=== PATIENT | male | born 1965 | race Caucasian/White ===

== ENCOUNTER 2018-04-22 15:42 | Emergency (ER) | payer MEDICAID ==
[~2018-04-22] VITALS: Ht 190.5 cm; Wt 111.1 kg
[2018-04-22 16:00] VITALS: BP 155/85
[2018-04-22] MEDS ORDERED: CYCLOBENZAPRINE10 MG ORAL (16:36)
[2018-04-22] MEDS ORDERED: NORCO 5-325 TA1 EACH ORAL (16:36)
[2018-04-22 16:45] VITALS: BP 143/76
[2018-04-22] MEDS ORDERED: Norco 5mg/325mg tab ORAL ONE (16:45)
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
== END 2018-04-22 18:00 | disposition home or self-care (01) ==
LOC: EMR 16:32
DX: S39.012A Strain of muscle, fascia and tendon of lower back, initial encounter (principal); V43.52XA Car driver injured in collision with other type car in traffic accident, initial encounter; Y92.410 Unspecified street and highway as the place of occurrence of the external cause
CPT/HCPCS: 99282

== ENCOUNTER 2018-11-02 20:38 | Inpatient (IN) | payer MEDICAID ==
[~2018-11-02] VITALS: Ht 190.5 cm; Wt 106.1 kg
[~2018-11-02 20:38] MED LIST: CYCLOBENZAPRINE10 MG ORAL; NORCO 5-325 TA1 EACH ORAL
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
--- NOTE | 2018-11-02 21:05 | NUR ---
ED Nurse Note: iv access established. blood collected; sent down to lab.
[2018-11-02 21:06] VITALS: BP 121/74
[2018-11-02] MEDS ORDERED: AMIODARONE HCL100 MG ORAL (21:12)
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
--- NOTE | 2018-11-02 21:21 | NUR ---
ED Nurse Note: imaging at bedside.
[2018-11-02 21:27] LABS: BASOPHILS % (AUTO) 0.4 % (0.0-2.0); EOSINOPHILS % (AUTO) 0.6 % (0.0-3.0); HEMATOCRIT 44.8 % (42.0-52.0); HEMOGLOBIN 14.1 G/DL (14.2-18.0); LYMPHOCYTES % (AUTO) 28.7 % (20.0-45.0); MEAN CORPUSCULAR VOLUME 84 FL (80-99); MONOCYTES % (AUTO) 7.2 % (1.0-10.0); NEUTROPHILS % (AUTO) 63.2 % (45.0-75.0); PLATELET COUNT 240 K/UL (150-450); RED BLOOD COUNT 5.34 M/UL (4.70-6.10); RED CELL DISTRIBUTION WIDTH 14.2 % (11.6-14.8)
[2018-11-02 21:39] LABS: ANION GAP 10 mmol/L (5-15); BLOOD UREA NITROGEN 18 mg/dL (7-18); CALCIUM 8.9 MG/DL (8.5-10.1); CARBON DIOXIDE 25 MMOL/L (21-32); CHLORIDE 106 MMOL/L (98-107); CREATININE 1.2 MG/DL (0.55-1.30); POTASSIUM 4.4 MMOL/L (3.5-5.1); SODIUM 141 MMOL/L (136-145)
[2018-11-02 21:52] LABS: ALANINE AMINOTRANSFERASE 30 U/L (12-78); ALBUMIN 4.1 G/DL (3.4-5.0); ALKALINE PHOSPHATASE 115 U/L (46-116); ASPARTATE AMINO TRANSFERASE 31 U/L (15-37); BILIRUBIN,TOTAL 0.4 MG/DL (0.2-1.0); CKMB 0.7 NG/ML (0.0-3.6); CREATINE KINASE 66 U/L (26-308)
[2018-11-02] MEDS ORDERED: Ketorolac 30mg Inj IV ONE (22:00)
--- NOTE | 2018-11-02 22:19 | NUR ---
ED Nurse Note: report given to dario guardado. per receiving rn, room not ready; will call back when room is ready.
--- NOTE | 2018-11-02 22:30 | NUR ---
TRANSFER TO FLOOR: Patient transferred to tele 220-1 as ordered, per hightower md. Report given to dario guardado. belongings list completed with receiving rn.
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
[2018-11-02] MEDS: DiphenhydrAMINE 50mg/ml Inj IVP PRN (23:29)
[2018-11-02] MEDS: Enoxaparin 40mg Inj SUBQ SCH (23:31)
[2018-11-03] VITALS: BP 120/78
[2018-11-03 04:00] VITALS: BP 104/67
[2018-11-03 05:58] LABS: APPEARANCE,URINE CLEAR; BILIRUBIN, URINE NEGATIVE (NEGATIVE); COLOR,URINE PALE YELLOW; GLUCOSE, URINE (UA) 1+ (NEGATIVE); KETONES,URINE NEGATIVE (NEGATIVE); LEUKOCYTE ESTERASE ,URINE NEGATIVE (NEGATIVE); NITRITE,URINE NEGATIVE (NEGATIVE); PH,URINE 5 (4.5-8.0); PROTEIN,URINE NEGATIVE (NEGATIVE); UROBILINOGEN,URINE NORMAL MG/DL (0.0-1.0)
[2018-11-03 06:22] LABS: BASOPHILS % (AUTO) 0.9 % (0.0-2.0); EOSINOPHILS % (AUTO) 1.1 % (0.0-3.0); HEMATOCRIT 37.6 % (42.0-52.0); HEMOGLOBIN 11.8 G/DL (14.2-18.0); LYMPHOCYTES % (AUTO) 34.3 % (20.0-45.0); MEAN CORPUSCULAR VOLUME 86 FL (80-99); MONOCYTES % (AUTO) 10.6 % (1.0-10.0); NEUTROPHILS % (AUTO) 53.2 % (45.0-75.0); PLATELET COUNT 207 K/UL (150-450); RED BLOOD COUNT 4.39 M/UL (4.70-6.10); RED CELL DISTRIBUTION WIDTH 14.7 % (11.6-14.8); WHITE BLOOD COUNT 5.2 K/UL (4.8-10.8)
[2018-11-03 06:40] LABS: ANION GAP 10 mmol/L (5-15); BLOOD UREA NITROGEN 13 mg/dL (7-18); CALCIUM 8.2 MG/DL (8.5-10.1); CARBON DIOXIDE 25 MMOL/L (21-32); CHLORIDE 105 MMOL/L (98-107); POTASSIUM 3.5 MMOL/L (3.5-5.1); SODIUM 140 MMOL/L (136-145)
[2018-11-03] MEDS ORDERED: traMADol 50mg tab ORAL PRN (07:30)
--- NOTE | 2018-11-03 07:56 | NUR ---
HAND-OFF: Report given to YIN Hawk. Pt stable.
[2018-11-03 08:00] VITALS: BP_SYST 102; BP_SYST 151; BP_DIAS 100; BP_DIAS 61
[2018-11-03] MEDS ORDERED: Amiodarone 200mg tab ORAL SCH (09:00)
[2018-11-03] MEDS: DiphenhydrAMINE 50mg/ml Inj IVP PRN ×2 (09:10→17:36)
[2018-11-03] MEDS: Aspirin Baby 81mg ORAL SCH (09:13)
--- NOTE | 2018-11-03 09:33 | Diagnostic Imaging Report ---
Indication: Chest pain Technique: One view of the chest Comparison: none Findings: There is a lucency under the right hemidiaphragm. Lungs and pleural spaces are clear. There is a left chest AICD. Impression: Lucency under the right hemidiaphragm. Suspect that this represents the colon under the diaphragm but the possibility of the represents free intraperitoneal gas should also be considered. Recommend abdominal series with decubitus view for further evaluation. This was discussed with Dr. Bowen at the time of interpretation No acute process otherwise
--- NOTE | 2018-11-03 10:00 | History and Physical Report ---
DATE OF ADMISSION: 11/02/2018 REASON FOR ADMISSION: Tachycardia. HISTORY OF PRESENT ILLNESS: The patient is a 53-year-old gentleman with known history of ventricular tachycardia, who recently had been placed on AICD. The patient had had several runs of ventricular tachycardia in the past. After having the ICD placed, it fired many times. He was in [place] and then transferred to [facility]. At [facility], his AICD was turned off 10/07/2018. The patient says again that he felt very flushed and almost passed out again, much to similar way as his last runs of ventricular tachycardia. As such, he was admitted for further evaluation and care. PAST MEDICAL HISTORY: 1. Ventricular tachycardia. 2. Chronic pain syndrome. PAST SURGICAL HISTORY: AICD. ALLERGIES: No known drug allergies SOCIAL HISTORY: No tobacco, alcohol, or illicit drug use. FAMILY HISTORY: Noncontributory. REVIEW OF SYSTEMS: NEUROLOGIC: The patient had presyncopal episode, lightheadedness, and dizziness. CARDIOVASCULAR: No current chest pain, palpitations, or angina. PULMONARY: No difficulty breathing, productive cough, or sputum. GASTROINTESTINAL/GENITOURINARY: No change in urinary or bowel habits. No nausea, vomiting, or diarrhea. ENDOCRINOLOGY: No night sweats, fevers, or chills. MUSCULOSKELETAL: The patient is feeling weak, tired, and fatigued. PHYSICAL EXAMINATION: VITAL SIGNS: Blood pressure 104/67, respiratory rate 18, temperature 98, and pulse 55. 98% oxygen saturation on room air. GENERAL: The patient is awake and alert, not in distress. HEENT: Extraocular muscles intact. No lymphadenopathy noted. CARDIOVASCULAR: S1, S2. Bradycardic. PULMONARY: Clear to auscultation bilaterally. No rales, rhonchi, or wheezes. ABDOMEN: Nondistended and nontender. EXTREMITIES: No edema. LABORATORY DATA: Labs dated 11/03/2018 - sodium 140, potassium 3.5, and creatinine 1. Troponin 0. White cell count 5.2, hemoglobin 11.8, and platelet count 207,000. ASSESSMENT AND PLAN: 1. Presyncopal episode, again could be secondary to underlying arrhythmia. The patient does have a history of ventricular tachycardia with AICD. At this time electrolytes are stable. Cardiology, Dr. Rajput, founder and chief executive officer has been consulted for further evaluation, management, and care. 2. Bradycardia. Stable. Continue to monitor. Cardiology to evaluate. 3. DVT prophylaxis with Lovenox. 4. GI prophylaxis with Protonix. Héctor Bowen MD DR: ROSANA JOB#: [id number] CC:
--- NOTE | 2018-11-03 11:00 | Cardiology Report ---
APPROVED REPORT EKG Measurement Heart [id number] Normal sinus rhythm Normal ECG
[2018-11-03 12:00] VITALS: BP 110/67
--- NOTE | 2018-11-03 15:22 | NUR ---
Staff RadiographerBack Hoe Machine Operator 53 Y/O male from HOME CC: WALKED IN WITH SYNCOPAL EPISODE, L-SIDE PAIN, PT REPORTS HE HAS IMPLANTED DEFIB, EPISODE OF HEART PALP AND PASSED OUT. DEFIB PUT IN 09/02/18. SI: SYNCOPE VS: BP: 121/74 HR: 88 RR 18 02 Sat 96% (RA) T: 98.6 NT: HGB 14.1 UR GLUCOSE 1+ TOTAL PROTEIN 8.3 CXR: NEGATIVE IS: NONE Admitted to TELEMETRY TELEMETRY status DCP: Pending HOSPITAL STAY
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
--- NOTE | 2018-11-03 17:34 | Cardiac Electrophysiology PN ---
Subjective Subjective [id number] Objective Last 24 Hour Vital Signs Date Time Temp Pulse Resp B/P (MAP) Pulse Ox O2 Delivery O2 Flow Rate FiO2 11/03/18 12:00 98.3 58 20 110/67 (81) 99 11/03/18 12:00 59 11/03/18 09:00 Room Air 11/03/18 08:00 97.7 77 18 102/61 (75) 98 11/03/18 08:00 68 11/03/18 04:00 98.0 55 18 104/67 (79) 98 11/03/18 04:00 59 11/03/18 00:01 Room Air 11/03/18 00:00 97.3 65 18 120/78 (92) 100 11/03/18 00:00 76 11/02/18 22:30 98.6 88 18 121/74 96 Room Air 11/02/18 22:25 98.6 11/02/18 21:06 98.6 88 18 121/74 96 Room Air 11/02/18 20:41 98.6 88 18 121/74 (90) 96 Room Air Intake and Output 11/02/18 11/03/18 19:00 07:00 Output Total 600 ml Balance -600 ml Output Urine Total 600 ml # Voids 1 Laboratory Tests Test 11/02/18 21:07 11/02/18 21:09 11/03/18 05:22 11/03/18 05:30 White Blood Count 7.0 K/UL (4.8-10.8) 5.2 K/UL (4.8-10.8) Red Blood Count 5.34 M/UL (4.70-6.10) 4.39 M/UL (4.70-6.10) L Hemoglobin 14.1 G/DL (14.2-18.0) L 11.8 G/DL (14.2-18.0) L Hematocrit 44.8 % (42.0-52.0) 37.6 % (42.0-52.0) L Mean Corpuscular Volume 84 FL (80-99) 86 FL (80-99) Mean Corpuscular Hemoglobin 26.4 PG (27.0-31.0) L 26.8 PG (27.0-31.0) L Mean Corpuscular Hemoglobin Concent 31.5 G/DL (32.0-36.0) L 31.3 G/DL (32.0-36.0) L Red Cell Distribution Width 14.2 % (11.6-14.8) 14.7 % (11.6-14.8) Platelet Count 240 K/UL (150-450) 207 K/UL (150-450) Mean Platelet Volume 6.3 FL (6.5-10.1) L 6.3 FL (6.5-10.1) L Neutrophils (%) (Auto) 63.2 % (45.0-75.0) 53.2 % (45.0-75.0) Lymphocytes (%) (Auto) 28.7 % (20.0-45.0) 34.3 % (20.0-45.0) Monocytes (%) (Auto) 7.2 % (1.0-10.0) 10.6 % (1.0-10.0) H Eosinophils (%) (Auto) 0.6 % (0.0-3.0) 1.1 % (0.0-3.0) Basophils (%) (Auto) 0.4 % (0.0-2.0) 0.9 % (0.0-2.0) Prothrombin Time 10.5 SEC (9.30-11.50) Prothromb Time International Ratio 1.0 (0.9-1.1) Activated Partial Thromboplast Time 29 SEC (23-33) Sodium Level 141 MMOL/L (136-145) 140 MMOL/L (136-145) Potassium Level 4.4 MMOL/L (3.5-5.1) 3.5 MMOL/L (3.5-5.1) Chloride Level 106 MMOL/L (98-107) 105 MMOL/L (98-107) Carbon Dioxide Level 25 MMOL/L (21-32) 25 MMOL/L (21-32) Anion Gap 10 mmol/L (5-15) 10 mmol/L (5-15) Blood Urea Nitrogen 18 mg/dL (7-18) 13 mg/dL (7-18) Creatinine 1.2 MG/DL (0.55-1.30) 1.0 MG/DL (0.55-1.30) Estimat Glomerular Filtration Rate > 60 mL/min (>60) > 60 mL/min (>60) Glucose Level 86 MG/DL (74-106) 68 MG/DL (74-106) L Calcium Level 8.9 MG/DL (8.5-10.1) 8.2 MG/DL (8.5-10.1) L Total Bilirubin 0.4 MG/DL (0.2-1.0) Aspartate Amino Transf (AST/SGOT) 31 U/L (15-37) Alanine Aminotransferase (ALT/SGPT) 30 U/L (12-78) Alkaline Phosphatase 115 U/L (46-116) Total Creatine Kinase 66 U/L (26-308) Creatine Kinase MB 0.7 NG/ML (0.0-3.6) Creatine Kinase MB Relative Index 1.0 Total Protein 8.3 G/DL (6.4-8.2) H Albumin 4.1 G/DL (3.4-5.0) Globulin 4.2 g/dL Albumin/Globulin Ratio 1.0 (1.0-2.7) Troponin I 0.000 ng/mL (0.000-0.056) Urine Color Pale yellow Urine Appearance Clear Urine pH 5 (4.5-8.0) Urine Specific [place] 1.010 (1.005-1.035) Urine Protein Negative (NEGATIVE) Urine Glucose (UA) 1+ (NEGATIVE) H Urine Ketones Negative (NEGATIVE) Urine Blood Negative (NEGATIVE) Urine Nitrite Negative (NEGATIVE) Urine Bilirubin Negative (NEGATIVE) Urine Urobilinogen Normal MG/DL (0.0-1.0) Urine Leukocyte Esterase Negative (NEGATIVE) Urine Opiates Screen Negative (NEGATIVE) Urine Barbiturates Screen Negative (NEGATIVE) Phencyclidine (PCP) Screen Negative (NEGATIVE) Urine Amphetamines Screen Negative (NEGATIVE) Urine Benzodiazepines Screen Negative (NEGATIVE) Urine Cocaine Screen Negative (NEGATIVE) Urine Marijuana (THC) Screen Negative (NEGATIVE) Surjit Rajput MD Nov 03, 2018 17:34
--- NOTE | 2018-11-03 19:30 | NUR ---
NURSE NOTES: Received report from YIN Hawk. Pt is awake and resting in bed. In no acute distress. IV line intact and patent. Bed in lowest position, call light within reach. Will continue plan of care.
[2018-11-03 19:50] VITALS: BP 114/67
[2018-11-03 20:00] VITALS: BP 118/67
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
--- NOTE | 2018-11-03 20:17 | Diagnostic Imaging Report ---
Indication: Abdominal pain Technique: Supine view of the abdomen Comparison: none Findings: There is a moderate amount of gas in nondilated large and small bowel. Surgical clips are seen in the left lower abdomen. No masses or unusual calcifications demonstrated. An AICD is seen in the included chest Impression: No acute process. Findings as noted This agrees with the preliminary interpretation provided overnight by [facility] teleradiology service.
[2018-11-04] VITALS: BP 118/81
[2018-11-04] MEDS: Enoxaparin 40mg Inj SUBQ SCH (00:12)
[2018-11-04] MEDS: DiphenhydrAMINE 50mg/ml Inj IVP PRN ×2 (01:40→10:23)
[2018-11-04 04:00] VITALS: BP 106/70
[2018-11-04 06:47] LABS: BASOPHILS % (AUTO) 0.5 % (0.0-2.0); EOSINOPHILS % (AUTO) 0.8 % (0.0-3.0); HEMATOCRIT 37.3 % (42.0-52.0); HEMOGLOBIN 11.7 G/DL (14.2-18.0); LYMPHOCYTES % (AUTO) 28.4 % (20.0-45.0); MEAN CORPUSCULAR VOLUME 86 FL (80-99); MONOCYTES % (AUTO) 10.9 % (1.0-10.0); NEUTROPHILS % (AUTO) 59.4 % (45.0-75.0); PLATELET COUNT 219 K/UL (150-450); RED BLOOD COUNT 4.36 M/UL (4.70-6.10); RED CELL DISTRIBUTION WIDTH 14.7 % (11.6-14.8); WHITE BLOOD COUNT 5.4 K/UL (4.8-10.8)
[2018-11-04 07:04] LABS: ANION GAP 8 mmol/L (5-15); BLOOD UREA NITROGEN 7 mg/dL (7-18); CALCIUM 8.4 MG/DL (8.5-10.1); CARBON DIOXIDE 25 MMOL/L (21-32); CHLORIDE 112 MMOL/L (98-107); POTASSIUM 3.7 MMOL/L (3.5-5.1); SODIUM 145 MMOL/L (136-145)
--- NOTE | 2018-11-04 07:11 | NUR ---
HAND-OFF: Report given to YIN Hawk.
[2018-11-04 08:00] VITALS: BP 126/76
--- NOTE | 2018-11-04 08:25 | Nephrology Progress Note ---
Assessment/Plan Assessment/Plan: A/P 1) CHF/VTach- AICD turned on. Amio bid - ECHO today - DC afterwards pending cardiology reccs 2) DVT propylaxis- lovenox 3) HTN- stable DC today after ECHO Subjective Date patient seen: Nov 04, 2018 Time patient seen: 08:22 ROS Limited/Unobtainable: No Allergies: Coded Allergies: No Known Allergies (Unverified , 04/22/18) Subjective Patient in no distress Objective Last 24 Hour Vital Signs Date Time Temp Pulse Resp B/P (MAP) Pulse Ox O2 Delivery O2 Flow Rate FiO2 11/04/18 04:00 67 11/04/18 04:00 97.7 67 18 106/70 (82) 98 11/04/18 00:00 63 11/04/18 00:00 97.9 63 20 118/81 (93) 97 11/03/18 21:15 80 118/67 11/03/18 21:00 Room Air 11/03/18 20:00 88 11/03/18 20:00 98.3 88 20 118/67 (84) 98 11/03/18 19:50 96.5 83 18 114/67 (83) 97 11/03/18 16:00 71 11/03/18 12:00 98.3 58 20 110/67 (81) 99 11/03/18 12:00 59 11/03/18 09:00 Room Air Intake and Output 11/03/18 11/04/18 18:59 06:59 Intake Total 1150 ml Balance 1150 ml Intake IV Total 1150 ml Laboratory Tests 11/04/18 06:15: White Blood Count 5.4, Red Blood Count 4.36L, Hemoglobin 11.7L, Hematocrit 37.3L , Mean Corpuscular Volume 86, Mean Corpuscular Hemoglobin 26.9L, Mean Corpuscular Hemoglobin Concent 31.5L, Red Cell Distribution Width 14.7, Platelet Count 219, Mean Platelet Volume 7.1, Neutrophils (%) (Auto) 59.4, Lymphocytes (%) (Auto) 28.4, Monocytes (%) (Auto) 10.9H, Eosinophils (%) (Auto) 0.8, Basophils (%) (Auto) 0.5, Sodium Level 145, Potassium Level 3.7, Chloride Level 112H, Carbon Dioxide Level 25, Anion Gap 8, Blood Urea Nitrogen 7, Creatinine 1.0, Estimat Glomerular Filtration Rate > 60, Glucose Level 65L, Calcium Level 8.4L, Troponin I 0.017 Height (Feet): 6 Height (Inches): 3.00 Weight (Pounds): 234 General Appearance: no apparent distress EENT: normal ENT inspection Neck: normal alignment, supple Cardiovascular: normal rate, regular rhythm Respiratory/Chest: lungs clear, normal breath sounds Abdomen: non tender, soft Edema: no edema noted Arm (L), no edema noted Arm (R), no edema noted Leg (L), no edema noted Leg (R), no edema noted Pedal (L), no edema noted Pedal (R), no edema noted Generalized Héctor Bowen MD Nov 04, 2018 08:25
[2018-11-04] MEDS ORDERED: Amiodarone 200mg tab ORAL SCH (09:00)
[2018-11-04] MEDS ORDERED: Lisinopril 10mg tab ORAL SCH (09:00)
[2018-11-04] MEDS: Aspirin Baby 81mg ORAL SCH (09:06)
[2018-11-04 11:55] VITALS: BP 112/78
--- NOTE | 2018-11-04 13:45 | NUR ---
*-* INSURANCE *-* ALL CLINICALS AND REVIEWS HAVE BEEN FAXED TO: [facility] SOLO:FEMI P: [phone] F: [phone] REF# [id number]
--- NOTE | 2018-11-04 13:45 | Cardiac Electrophysiology PN ---
Assessment/Plan Assessment/Plan 1. This is a 53-year-old gentleman with history of ICD placement after sustained ventricular tachycardia at an outside institution. The patient however on 10/04/2018 left [facility] against medical advice. His ICD was interrogated and showed that the ICD did not fire. ICD was reinterrogated and the therapies now are on. 2. History of ventricular tachycardia, status post ICD at an outside hospital in August 2018 with single-chamber Medtronic defibrillator. Nl Fx by interrogation. No shocks. 3. Congestive heart failure. EF of 35% to 40% on 09/09/2018. On amiodarone 400 mg daily for ventricular tachycardia. His echocardiogram showed Ef 60%. On Coreg and Lisinopril 4. History of right upper extremity DVT. The patient was on Xarelto 20 mg b.i.d. and currently on Lovenox. No further DVT. 5. Anemia. Subjective Subjective No arrhythmias on tele. No CP or SOB. ICD is now turned on after reinterrogation Objective Last 24 Hour Vital Signs Date Time Temp Pulse Resp B/P (MAP) Pulse Ox O2 Delivery O2 Flow Rate FiO2 11/04/18 11:55 97.4 87 20 112/78 (89) 98 11/04/18 09:07 81 126/76 11/04/18 09:06 126/76 11/04/18 09:00 Room Air 11/04/18 08:00 59 11/04/18 08:00 97.9 81 18 126/76 (93) 98 11/04/18 04:00 67 11/04/18 04:00 97.7 67 18 106/70 (82) 98 11/04/18 00:00 63 11/04/18 00:00 97.9 63 20 118/81 (93) 97 11/03/18 21:15 80 118/67 11/03/18 21:00 Room Air 11/03/18 20:00 88 11/03/18 20:00 98.3 88 20 118/67 (84) 98 11/03/18 19:50 96.5 83 18 114/67 (83) 97 11/03/18 16:00 71 Intake and Output 11/03/18 11/04/18 19:00 07:00 Intake Total 1150 ml Balance 1150 ml Intake IV Total 1150 ml Laboratory Tests Test 11/04/18 06:15 White Blood Count 5.4 K/UL (4.8-10.8) Red Blood Count 4.36 M/UL (4.70-6.10) L Hemoglobin 11.7 G/DL (14.2-18.0) L Hematocrit 37.3 % (42.0-52.0) L Mean Corpuscular Volume 86 FL (80-99) Mean Corpuscular Hemoglobin 26.9 PG (27.0-31.0) L Mean Corpuscular Hemoglobin Concent 31.5 G/DL (32.0-36.0) L Red Cell Distribution Width 14.7 % (11.6-14.8) Platelet Count 219 K/UL (150-450) Mean Platelet Volume 7.1 FL (6.5-10.1) Neutrophils (%) (Auto) 59.4 % (45.0-75.0) Lymphocytes (%) (Auto) 28.4 % (20.0-45.0) Monocytes (%) (Auto) 10.9 % (1.0-10.0) H Eosinophils (%) (Auto) 0.8 % (0.0-3.0) Basophils (%) (Auto) 0.5 % (0.0-2.0) Sodium Level 145 MMOL/L (136-145) Potassium Level 3.7 MMOL/L (3.5-5.1) Chloride Level 112 MMOL/L (98-107) H Carbon Dioxide Level 25 MMOL/L (21-32) Anion Gap 8 mmol/L (5-15) Blood Urea Nitrogen 7 mg/dL (7-18) Creatinine 1.0 MG/DL (0.55-1.30) Estimat Glomerular Filtration Rate > 60 mL/min (>60) Glucose Level 65 MG/DL (74-106) L Calcium Level 8.4 MG/DL (8.5-10.1) L Troponin I 0.017 ng/mL (0.000-0.056) Objective HEAD AND NECK: Showed no JVD or carotid bruits. LUNGS: Clear. CARDIOVASCULAR: Regular S1 and S2 with no gallop or murmur. The defibrillator in the left subclavian. ABDOMEN: Soft. EXTREMITIES: No pitting edema. Surjit Rajput MD Nov 04, 2018 13:45
--- NOTE | 2018-11-04 15:02 | Discharge Instructions ---
Discharge Instructions Discharge Instructions Services at Discharge: day care Diet: 2 GM sodium (low sodium) Resume Normal Activity?: Yes Activity: light activity Follow Up Orders Change amiodarone to 400mg daily F/U with your heart doctor 1 week For Congestive Heart Failure Reminder Report to your physician any weight gain of 5 pounds or more in one week. Héctor Bowen MD Nov 04, 2018 15:02
[2018-11-04] MEDS ORDERED: 1/2 NS 1000ml IV ONE (15:39)
--- NOTE | 2018-11-04 16:07 | NUR ---
NURSE NOTES:Mr Orona was aox4 with calm, cooperative affect. Breathing easilyh on RA. No sign of cardiac distress and NSR on tele. Showered today. Tolerated diet with no nvd. Steady gait noted during walking. Echo done today. patient dced after Dr Rajput and Dr Bowen reviewed results. Patient reviewed dc orders and had no further qwuestions after speaking with dr at bedside prior to dc. Removed IV and returned tele box. Supplied patient with bus tokens for his transport to [place] to meet his son who will transport him via private car back to [facility] where Mr Orona lives.
--- NOTE | 2018-11-04 16:23 | Cardiology Report ---
APPROVED REPORT EXAM: Two-dimensional and M-mode echocardiogram with Doppler and color Doppler. INDICATION Congestive Heart Failure M-Mode DIMENSIONS IVSd1.0 (0.7-1.1cm)Left Atrium (MM)3.6 (1.6-4.0cm) LVDd5.6 (3.5-5.6cm)Aortic Root3.2 (2.0-3.7cm) PWd1.0 (0.7-1.1cm)Aortic Cusp Exc.1.9 (1.5-2.0cm) LVDs3.6 (2.5-4.0cm) PWs1.5 cm Technically difficult study due to poor acoustical windows. Normal left ventricular chamber size, systolic function and wall motion to extent visualized. Left ventricular ejection fraction estimated to be 60%. Study quality precludes accurate assessment of regional wall motion. Mild left ventricular hypertrophy by 2-D. Anterior Echo-free space, may be due to pericardial fat or effusion. All other cardiac chamber sizes are within normal limits. Focal aortic valve sclerosis with adequate cusp excursion. Thickened mitral valve leaflets with normal excursion. Mitral annulus and aortic root calcification. Pulmonic valve not well visualized. Normal tricuspid valve structure. IVC at normal size with slight physiologic collapse. Defibrillator wire present in the right side chambers. A color flow and spectral Doppler study was performed and revealed: No aortic regurgitation. Trace mitral regurgitation. Mitral diastolic velocities suggest reduced left ventricular relaxation c/w mild LV diastolic dysfunction (Grade I ). Trace tricuspid regurgitation. Tricuspid systolic velocities suggests peak right ventricular systolic pressure of 12 mmHg.
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
--- NOTE | 2018-11-08 13:18 | Cardiology Report ---
APPROVED REPORT EKG Measurement Heart [id number] Normal sinus rhythm Inferior infarct, age undetermined Abnormal ECG
== END 2018-11-04 15:40 | disposition home or self-care (01) | DRG 201 ==
LOC: EMR 21:10 → 2E 21:42 → EDBEDREQ 22:16
DX: I47.2 Ventricular tachycardia (principal); I11.0 Hypertensive heart disease with heart failure; I50.9 Heart failure, unspecified; R55 Syncope and collapse; Z95.810 Presence of automatic (implantable) cardiac defibrillator; Z86.718 Personal history of other venous thrombosis and embolism; Z79.01 Long term (current) use of anticoagulants; G89.29 Other chronic pain; D64.9 Anemia, unspecified
CPT/HCPCS: 36415; 71045; 74019; 80048; 80053; 80307; 81003; 82550; 82553; 84484; 85025; 85610; 85730; 93005; 93306; 96374; 99285